=== PATIENT | female | born 1965 | race Caucasian/White ===

== ENCOUNTER 2016-12-11 06:44 | Emergency (ER) | payer MEDICARE ==
[~2016-12-11] VITALS: Ht 157.5 cm; Wt 71.4 kg
[~2016-12-11 06:44] MED LIST: ALBUTEROL0.09 MG/A1 IH; CELEBREX 200MG200 MG PO; CYMBALTA 30MG30 MG PO; FOSAMAX 70MG TA70 MG PO; GEMCOR600 MG PO; HCTZ 25MG25 MG PO; INSULIN 70/3100 U/ML IJ; LORTAB 10/500 51 TAB PO; LORTAB 2.5/5001 TAB; MORPHINE; NOVOLIN 70/30 PE3 ML SC; PERCOCET 325 MG1 TA2 PO; PREMARIN 0.60.625 MG PO; XANAX1 MG PO
[2016-12-11 07:29] LABS: BASO % 0.2 % (0.0-2.0); EOS # 0.1 (0.0-0.7); GRAN # 5.1 (1.4-6.5); GRAN % 53.6 % (42.2-75.2); HEMATOCRIT 45.3 % (37.0-47.0); HEMOGLOBIN 15.4 g/dl (12.5-16.0); LYMPH # 3.9 (1.2-3.4); LYMPH % 40.7 % (20.0-51.0); MEAN CELL VOLUME 90 fl (80.0-100.0); MEAN CORPUSCULAR HEMOGLOBIN 31 pg (27.0-31.0); MEAN CORPUSCULAR HGB CONC 34 g/dl (33.0-37.0); MEAN PLATELET VOLUME 11.5 fl (7.4-10.4); MONO # 0.4 (0.1-0.6); MONO % 4.1 % (1.7-9.3); PLATELET COUNT 136 K/mm3 (130-400); RED BLOOD COUNT 5.01 M/mm3 (4.10-5.30); REDCELL DISTRIBUTION WIDTH-CV 12.9 % (11.5-14.5); WHITE BLOOD COUNT 9.6 K/mm3 (4.8-10.8)
[2016-12-11 07:44] LABS: ADJUSTED CALCIUM 9.1 mg/dL (8.4-10.2); ALBUMIN 4.3 gm/dL (3.5-5.0); BILIRUBIN,TOTAL 0.7 mg/dL (0.0-1.0); C-REACTIVE PROTEIN 0.7 mg/dL (0.0-0.9); CALCIUM 9.3 mg/dL (8.4-10.2); CREATININE, serum 0.48 mg/dL (0.52-1.25); POTASSIUM 3.9 mmol/L (3.4-5.0); TOTAL PROTEIN 7.2 gm/dL (6.4-8.2)
[2016-12-11] MEDS ORDERED: NOVOLOG FLEX100 U/ML SQ (07:54)
[2016-12-11] MEDS ORDERED: LANTUS SOLOS100 U/ML SQ (08:00)
[2016-12-11] MEDS ORDERED: GLUCOPHAGE850 MG/TAB PO (08:01)
[2016-12-11] MEDS ORDERED: OPANA5 MG PO (08:04)
[2016-12-11] MEDS ORDERED: OPANA10 MG PO (08:04)
[2016-12-11] MEDS ORDERED: NEURONTIN400 MG/CAP PO (08:06)
[2016-12-11] MEDS ORDERED: CARAFATE 1GM1 G PO (08:10)
[2016-12-11 08:34] VITALS: BP 117/80; PULSE 61; TEMP 97.5
== END 2016-12-11 08:36 | disposition home or self-care (01) ==
LOC: COL.ER 06:44
PROVIDERS: Emergency Medicine
DX: R10.13 Epigastric pain (principal); R11.0 Nausea; E11.9 Type 2 diabetes mellitus without complications; J44.9 Chronic obstructive pulmonary disease, unspecified; F17.210 Nicotine dependence, cigarettes, uncomplicated; Z85.3 Personal history of malignant neoplasm of breast
CPT/HCPCS: C9113; J2405; J7030